=== PATIENT | male | born 1990 | race Caucasian/White ===

== ENCOUNTER 2016-10-31 23:45 | Emergency (ER) | payer SELFPAY ==
[~2016-10-31] VITALS: Ht 182.9 cm; Wt 95.0 kg
[~2016-10-31 23:45] MED LIST: NAPR500 PO; ROBA750T PO
[2016-10-31 23:46] VITALS: BP 142/97; PULSE 79; RESP 16; TEMP 98; O2SAT 97
[2016-11-01] MEDS ORDERED: ALBU6.7H INH (00:26)
[2016-11-01] MEDS ORDERED: ZITH250T PO (00:26)
[2016-11-01] MEDS ORDERED: PRED-503 PO (00:26)
[2016-11-01] MEDS ORDERED: predniSONE 20 MG TAB PO ONE (00:30)
--- NOTE | 2016-11-01 00:31 | PD ---
HPI Chief Complaint: Respiratory Symptoms Time Seen by Provider: 00:27 Travel History International Travel<30 days: No Contact w/Intl Traveler<30days: No Traveled to known affect area: No History of Present Illness HPI 26-year-old white male presents to emergency Department with complaints of cough and shortness of breath. He states it is been sick now for the past 3 or 4 days. He states that this initially started off with a sore throat, headache and congestion which has now settled down into his chest. He states that he has had some shortness of breath and wheezing. Positive cough with clear sputum. He had leave work today because of his shortness of breath. He states he had asthma as a child. He is a smoker. He denies any nausea vomiting. No abdominal pain or diarrhea. No urinary symptoms. Symptoms are moderate. Worse with coughing or activity. No alleviating factors. PFSH Past Medical History Narrative Medical Right hand fracture, asthma as a child Cancer: No Cardiovascular Problems: No Diminished Hearing: No Endocrine: No Genitourinary: No Immune Disorder: No Musculoskeletal: Yes (FX RT HAND ) Neurologic: No Psychiatric: No Reproductive: No Respiratory: Yes (CHILDHOOD ASTHMA) Past Surgical History Body Medical Devices: PLATE RIGHT HAND Pacemaker: No Social History Alcohol Use: Yes ("When I can...") Tobacco Use: Yes (1PPD) Substance Use: Yes (K2 MJ) Allergies-Medications (Allergen,Severity, Reaction): Coded Allergies: No Known Allergies (Verified , 11/01/16) Reported Meds & Prescriptions Reported Meds & Active Scripts Active Robaxin (Methocarbamol) 750 Mg Tab 750 Mg PO Q8HR PRN Naprosyn (Naproxen) 500 Mg Tab 500 Mg PO Q12HR PRN Review of Systems Except as stated in HPI: all other systems reviewed are Neg Physical Exam Narrative GENERAL: Well-developed, well-nourished in no acute distress. Nontoxic appearing. HEAD: Normocephalic, atraumatic. EYES: Pupils equal round and reactive. Extraocular motions intact. No scleral icterus. No injection or drainage. ENT: TMs clear without erythema. The external auditory canals clear. Nose: clear . Posterior pharynx is mildly erythematous and moist. White hairy tongue No tonsillar edema or exudate. Uvula midline. Airway patent. NECK: Trachea midline.Supple, nontender, moves head freely. No central bony tenderness or spasm. CARDIOVASCULAR: Regular rate and rhythm without murmurs, gallops, or rubs. RESPIRATORY: Scattered rhonchi with expiratory wheezes. No Rales. GASTROINTESTINAL: Abdomen soft, non-tender, nondistended. No hepato-splenomegaly , or palpable masses. No guarding. EXTREMITIES: No clubbing, cyanosis, or edema. No joint tenderness, effusion, or edema noted. BACK: Nontender without deformity or crepitance. No flank tenderness. Data Data Last Documented VS Vital Signs Date Time Temp Pulse Resp B/P Pulse Ox O2 Delivery O2 Flow Rate FiO2 10/31/16 23:46 98.0 79 16 142/97 97 Room Air Orders Prednisone (Deltasone) (11/01/16 00:30) Duoneb Q 15 Min X 2 Doses (11/01/16 00:30) [facility] Medical Decision Making Medical Screen Exam Complete: Yes Emergency Medical Condition: Yes Medical Record Reviewed: Yes Differential Diagnosis MDM: High Differential diagnoses: Pneumonia, bronchitis, URI, asthma, RAD, strep throat, otitis media Narrative Course Patient is given 80 mg of prednisone by mouth along with 2 DuoNeb. The patient subjectively feeling better. He has improved air movement. He has nearly complete resolution of his wheezing. This is bronchitis, reactive airway disease Diagnosis Primary Impression: Bronchitis Additional Impression: Reactive airway disease Qualified Code: J45.20 - Reactive airway disease, mild intermittent, uncomplicated Patient Instructions: General Instructions Additional Instructions: Rest. Increase fluids. Tylenol and Advil. Robitussin-DM. Zithromax, prednisone, and albuterol. Followup with your DrEdinson in one week. Return to the ER for any problems. Med/Other Pt SpecificInfo: Prescription(s) given Scripts Prednisone (Deltasone)20 Mg Tab40 Mg PO BID #20 TAB Prov:Rosanna Collins MD 11/01/16 Albuterol 6.7 GM Inh (Proventil Hfa 6.7 GM Inh)90 Mcg/Act Aer2 Puff INH Q6H PRN (SHORTNESS OF BREATH) #1 INHALER Prov:Rosanna Collins MD 11/01/16 Azithromycin (Zithromax)250 Mg [id number] Mg PO DIRECTED #6 TAB Take 2 tabs (500 mg) on day 1 then 1 tab daily x 4 days. Prov:Rosanna Collins MD 11/01/16 Disposition: 01 DISCHARGE HOME Condition: Stable Be Vela Nov 01, 2016 00:31
[2016-11-01] MEDS: RESP: ALBUTEROL 2.5 MG/IPRATROPIUM 0.5 MG NEB (SCH) INH (01:22)
== END 2016-11-01 01:59 | disposition home or self-care (01) ==
LOC: NEPK 23:45
DX: J45.20 Mild intermittent asthma, uncomplicated (principal); F17.210 Nicotine dependence, cigarettes, uncomplicated
CPT/HCPCS: 94640; 94664; 99284; J7512

== ENCOUNTER 2017-08-12 07:51 | Emergency (ER) | payer SELFPAY ==
[~2017-08-12] VITALS: Ht 182.9 cm; Wt 100.0 kg
[~2017-08-12 07:51] MED LIST changes: +ALBU6.7H INH; +PRED-503 PO; +ZITH250T PO
[2017-08-12 07:54] VITALS: BP 159/96; PULSE 55; RESP 17; TEMP 98.1; O2SAT 98
[2017-08-12] MEDS ORDERED: FLUT1SPR5 EACH NARE (08:37)
[2017-08-12] MEDS ORDERED: AMOX875T PO (08:37)
[2017-08-12] MEDS ORDERED: VENTAER INH (08:37)
[2017-08-12] MEDS ORDERED: IBUP1TAB7 PO (08:37)
[2017-08-12] MEDS ORDERED: IBUPROFEN 800 MG TAB PO ONE (08:45)
[2017-08-12] MEDS ORDERED: AMOXICILLIN 875 MG TAB PO ONE (08:45)
--- NOTE | 2017-08-12 08:45 | PD ---
HPI Chief Complaint: ENT Complaint Time Seen by Provider: 08:24 Travel History International Travel<30 days: No Contact w/Intl Traveler<30days: No Traveled to known affect area: No History of Present Illness HPI 26-year-old male presents emergency department with bilateral ear pain , right greater than left for the past 2 days. Patient has had increased upper respiratory symptoms including sinus congestion, headache, postnasal drip, cough , and mild wheeze. Patient is needed an inhaler in the past. He denies fever, chills, nausea, vomiting, or heartburn. He has no chest pain. Pain in his ears is 8 out of 10. He has decreased hearing secondary to congestion. He has no known drug allergies. PFSH Past Medical History Asthma: Yes Cancer: No Cardiovascular Problems: No Diminished Hearing: No Endocrine: No Genitourinary: No Immune Disorder: No Musculoskeletal: Yes (FX RT HAND ) Neurologic: No Psychiatric: No Reproductive: No Respiratory: Yes (CHILDHOOD ASTHMA) Tetanus Vaccination: < 5 Years Influenza Vaccination: No Past Surgical History Body Medical Devices: PLATE RIGHT HAND Pacemaker: No Other Surgery: Yes Social History Alcohol Use: Yes Tobacco Use: Yes (1PPD) Substance Use: Yes (H/O K2 MJ) Allergies-Medications (Allergen,Severity, Reaction): Coded Allergies: No Known Allergies (Verified Adverse Reaction, Unknown, 08/12/17) Reported Meds & Prescriptions Reported Meds & Active Scripts Active Ventolin Hfa 18 GM Inh (Albuterol Sulfate) 90 Mcg/Act Aer 2 Puff INH Q4-6H PRN Ibuprofen 800 Mg Tab 800 Mg PO Q8H PRN Flonase Nasal [place] (Fluticasone Nasal [place]) 50 Mcg/Act [place] 100 Mcg EACH NARE BID Amoxicillin 875 Mg Tab 875 Mg PO BID 10 Days Review of Systems Except as stated in HPI: all other systems reviewed are Neg General / Constitutional: No: Fever, Chills Eyes: No: Visual changes HENT: Positive: Headaches, Rhinitis, Rhinorrhea, Congestion, Earache, No: Vertigo, Lightheadedness, Sore Throat, Nosebleed, Neck Stiffness, Neck Pain, Gingival Bleeding, Dental Difficulties, Ear Discharge Cardiovascular: No: Chest Pain or Discomfort Respiratory: Positive: Cough, Wheezing, No: Shortness of Breath Gastrointestinal: No: Abdominal Pain Genitourinary: No: Dysuria Musculoskeletal: No: Pain Skin: No Rash Neurologic: No: Weakness Psychiatric: No: Depression Endocrine: No: Polydipsia Hematologic/Lymphatic: No: Easy Bruising Physical Exam Narrative GENERAL: Patient appears ill but not septic SKIN: Warm and dry. Normal color. Normal turgor. HEAD: Atraumatic. Normocephalic. No sinus tenderness to palpation EYES: Pupils equal and round. No scleral icterus. No injection or drainage. ENT: No nasal bleeding or discharge. Mucous membranes pink and moist. Both TMs are dull red and bulging bilaterally more on the left than the right. Patient has purulent rhinitis. Postnasal drip is noted in the posterior pharynx as well as erythema and cobblestoning. No significant tonsillitis is noted. Uvula is midline. Airways patent. NECK: Trachea midline. Supple and nontender without significant lymphadenopathy. CARDIOVASCULAR: Regular rate and rhythm. RESPIRATORY: No accessory muscle use. Diffuse wheezes to auscultation. Breath sounds equal bilaterally. GASTROINTESTINAL: Abdomen soft, non-tender, nondistended. Hepatic and splenic margins not palpable. MUSCULOSKELETAL: Extremities without clubbing, cyanosis, or edema. No obvious deformities. NEUROLOGICAL: Awake and alert. No obvious cranial nerve deficits. Motor grossly within normal limits. Five out of 5 muscle strength in the arms and legs. Normal speech. PSYCHIATRIC: Appropriate mood and affect; insight and judgment normal. Data Data Last Documented VS Vital Signs Date Time Temp Pulse Resp B/P (MAP) Pulse Ox O2 Delivery O2 Flow Rate FiO2 08/12/17 07:54 98.1 55 17 159/96 (117) 98 Orders Orders Amoxicillin (Trimox) (08/12/17 08:45) Ibuprofen (Motrin) (08/12/17 08:45) [facility] Medical Decision Making Medical Screen Exam Complete: Yes Emergency Medical Condition: Yes Differential Diagnosis Bilateral otitis media. Sinusitis. Wheezing Narrative Course Patient is treated with amoxicillin 875 twice daily for 10 days. Patient started on Flonase nasal spray 2 sprays each nostril daily. Patient is given albuterol metered-dose inhaler 2 puffs every 4-6 hours as needed wheezing. Work note for today is given. Follow-up if symptoms do not improve or worsen as needed Diagnosis Primary Impression: Bilateral otitis media with effusion Additional Impressions: Sinusitis, acute Qualified Codes: J01.40 - Acute pansinusitis, unspecified Wheezing Patient Instructions: Ear Infection (ED), General Instructions, Sinusitis (ED) Departure Forms: Work Release Enter return to work date: Aug 13, 2017 Additional Instructions: Patient is treated with amoxicillin 875 twice daily for 10 days. Patient started on Flonase nasal spray 2 sprays each nostril daily. Patient is given albuterol metered-dose inhaler 2 puffs every 4-6 hours as needed wheezing. Work note for today is given. Follow-up if symptoms do not improve or worsen as needed Med/Other Pt SpecificInfo: Prescription(s) given Scripts Albuterol 18 GM Inh (Ventolin Hfa 18 GM Inh) 90 Mcg/Act Aer 2 PUFF INH Q4-6H Y for SHORTNESS OF BREATH, #1 INHALER 0 Refills Prov: Anjel Decker MD 08/12/17 Ibuprofen (Ibuprofen) 800 Mg Tab 800 MG PO Q8H Y for Pain/Inflammation, #60 TAB 0 Refills Prov: Anjel Decker MD 08/12/17 Fluticasone Nasal [place] (Flonase Nasal [place]) 50 Mcg/Act [place] 100 MCG EACH NARE BID for Allergies, #1 BOTTLE 0 Refills Prov: Anjel Decker MD 08/12/17 Amoxicillin (Amoxicillin) 875 Mg Tab 875 MG PO BID for Infection for 10 Days, #20 TAB 0 Refills Prov: Anjel Decker MD 08/12/17 Disposition: 01 DISCHARGE HOME Condition: Stable Alberto Toribio Aug 12, 2017 08:45
== END 2017-08-12 08:55 | disposition home or self-care (01) ==
LOC: NEPD 07:51
DX: H65.93 Unspecified nonsuppurative otitis media, bilateral (principal); J01.40 Acute pansinusitis, unspecified; J45.909 Unspecified asthma, uncomplicated; R05 Cough; R51 Headache; F17.210 Nicotine dependence, cigarettes, uncomplicated; F12.90 Cannabis use, unspecified, uncomplicated
CPT/HCPCS: 99283

== ENCOUNTER 2017-09-14 13:59 | Emergency (ER) | payer SELFPAY ==
[~2017-09-14] VITALS: Ht 182.9 cm; Wt 100.0 kg
[~2017-09-14 13:59] MED LIST changes: -ALBU6.7H INH; +AMOX875T PO; +FLUT1SPR5 EACH NARE; +IBUP1TAB7 PO; -NAPR500 PO; -PRED-503 PO; -ROBA750T PO; +VENTAER INH; -ZITH250T PO
[2017-09-14 15:16] VITALS: BP 146/73; PULSE 58; RESP 17; TEMP 98.2; O2SAT 97
[2017-09-14 17:20] LABS: AUTOMATED NEUTROPHIL # 9.9 TH/MM3 (1.8-7.7); BASOPHIL % 0.1 % (0.0-2.0); EOSINOPHIL # 0.1 TH/MM3 (0-0.4); EOSINOPHIL % 0.7 % (0.0-4.0); HEMATOCRIT 44.9 % (39.0-51.0); HEMOGLOBIN 15.2 GM/DL (13.0-17.0); LYMPH % 6.5 % (9.0-44.0); LYMPHOCYTE # 0.7 TH/MM3 (1.0-4.8); MEAN CELL VOLUME 88.1 FL (80.0-100.0); MEAN CORPUSCULAR HEMOGLOBIN 29.8 PG (27.0-34.0); MEAN CORPUSCULAR HGB CONC 33.8 % (32.0-36.0); MEAN PLATELET VOLUME 8.9 FL (7.0-11.0); MONO % 3.4 % (0.0-8.0); MONOCYTE # 0.4 TH/MM3 (0-0.9); NEUT % 89.3 % (16.0-70.0); PLATELET COUNT 171 TH/MM3 (150-450); RED BLOOD COUNT 5.09 MIL/MM3 (4.50-5.90); RED CELL DISTRIBUTION WIDTH 12.2 % (11.6-17.2)
[2017-09-14] MEDS ORDERED: SODIUM CHLOR 0.9% 1000 ML INJ 1,000 ML IV ONE (17:45)
[2017-09-14] MEDS ORDERED: METOCLOPRAMIDE HCL 10 MG/2 ML VIAL IV PUSH ONE (17:45)
[2017-09-14 17:47] LABS: ALBUMIN 4.2 GM/DL (3.4-5.0); AST (GOT) 22 U/L (15-37); BICARBONATE 22.7 MEQ/L (21.0-32.0); BLOOD UREA NITROGEN 16 MG/DL (7-18); CALCIUM 9.2 MG/DL (8.5-10.1); CHLORIDE 105 MEQ/L (98-107); CREATININE 0.96 MG/DL (0.60-1.30); GLOMERULAR FILTRATION RATE 96 ML/MIN (>89); GLUCOSE,RANDOM 88 MG/DL (74-106); SODIUM (NA) 138 MEQ/L (136-145)
[2017-09-14 17:49] LABS: ALT (GPT) 39 U/L (12-78)
[2017-09-14 17:50] LABS: ALKALINE PHOSPHATASE 114 U/L (45-117); TOTAL BILIRUBIN ADULT 0.7 MG/DL (0.2-1.0); TOTAL PROTEIN 8.2 GM/DL (6.4-8.2)
[2017-09-14 18:27] VITALS: BP 135/65; PULSE 75; RESP 16; O2SAT 100
--- NOTE | 2017-09-14 18:29 | PD ---
HPI Chief Complaint: GI Complaint Time Seen by Provider: 17:28 Travel History International Travel<30 days: No Contact w/Intl Traveler<30days: No Traveled to known affect area: No History of Present Illness HPI 26-year-old male who presents to the ED for evaluation of abdominal pain, nausea vomiting diarrhea. Per patient this started since last night. Per patient his sister was sick with similar symptoms. 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 Per patient the diarrhea is watery. Per patient his vomitus no bloody. Patient cannot keep anything down until he took a Zofran from a friend's prescription that did not improve his symptoms. Patient still has a diarrhea. No blood in the stool. Denies any chest pain or shortness of breath. Most of the pain on the abdomen is 3 out of mostly in the lower abdomen. Especially in the right lower. Denies any other medical issues. Pain per patient is 6 out of 10. Cramping. PFSH Past Medical History Asthma: Yes Cancer: No Cardiovascular Problems: No Diminished Hearing: No Endocrine: No Genitourinary: No Immune Disorder: No Musculoskeletal: Yes (FX RT HAND ) Neurologic: No Psychiatric: No Reproductive: No Respiratory: Yes (CHILDHOOD ASTHMA) Immunizations Current: No Tetanus Vaccination: < 5 Years Influenza Vaccination: No Past Surgical History Body Medical Devices: PLATE RIGHT HAND Pacemaker: No Other Surgery: Yes Social History Alcohol Use: Yes Tobacco Use: Yes (1PPD) Substance Use: Yes (H/O K2 MJ) Allergies-Medications (Allergen,Severity, Reaction): Coded Allergies: No Known Allergies (Verified Adverse Reaction, Unknown, 09/14/17) Reported Meds & Prescriptions Reported Meds & Active Scripts Active Bentyl (Dicyclomine HCl) 10 Mg Cap 10 Mg PO TID PRN Zofran Odt (Ondansetron Odt) 4 Mg Tab 4 Mg SL Q6HR PRN Review of Systems Except as stated in HPI: all other systems reviewed are Neg Physical Exam Narrative GENERAL: SKIN: Warm and dry. HEAD: Atraumatic. Normocephalic. EYES: Pupils equal and round. No scleral icterus. No injection or drainage. ENT: No nasal bleeding or discharge. Mucous membranes pink and moist. Tongue is midline. No uvula deviation NECK: Trachea midline. No JVD. CARDIOVASCULAR: Regular rate and rhythm. No murmurs, S3, S4. RESPIRATORY: No accessory muscle use. Clear to auscultation. Breath sounds equal bilaterally. GASTROINTESTINAL: Abdomen soft, tender in the abdomen more noticeable on the right lower quadrant with deep palpation, nondistended. Hepatic and splenic margins not palpable. MUSCULOSKELETAL: Extremities without clubbing, cyanosis, or edema. No obvious deformities. Full range of motion of the upper and lower extremities bilaterally. 2+ pulses bilaterally. NEUROLOGICAL: Awake and alert. No obvious cranial nerve deficits. Motor grossly within normal limits. Five out of 5 muscle strength in the arms and legs. Normal speech. PSYCHIATRIC: Appropriate mood and affect; insight and judgment normal. Data Data Last Documented VS Vital Signs Date Time Temp Pulse Resp B/P (MAP) Pulse Ox O2 Delivery O2 Flow Rate FiO2 09/14/17 19:05 69 16 129/64 (85) 96 Room Air 09/14/17 15:16 98.2 Orders Orders Complete Blood Count With Diff (09/14/17 15:18) Comprehensive Metabolic Panel (09/14/17 15:18) Lipase (09/14/17 15:18) Ct Abd/Pel W Iv Contrast(Rout) (09/14/17 ) Metoclopramide Inj (Reglan Inj) (09/14/17 17:45) Sodium Chlor 0.9% 1000 Ml Inj (Ns 1000 M (09/14/17 17:45) Iohexol 350 Inj (Omnipaque 350 Inj) (09/14/17 19:35) Ed Discharge Order (09/14/17 19:55) Labs Laboratory Tests Test 09/14/17 15:30 White Blood Count 11.0 TH/MM3 Red Blood Count 5.09 MIL/MM3 Hemoglobin 15.2 GM/DL Hematocrit 44.9 % Mean Corpuscular Volume 88.1 FL Mean Corpuscular Hemoglobin 29.8 PG Mean Corpuscular Hemoglobin Concent 33.8 % Red Cell Distribution Width 12.2 % Platelet Count 171 TH/MM3 Mean Platelet Volume 8.9 FL Neutrophils (%) (Auto) 89.3 % Lymphocytes (%) (Auto) 6.5 % Monocytes (%) (Auto) 3.4 % Eosinophils (%) (Auto) 0.7 % Basophils (%) (Auto) 0.1 % Neutrophils # (Auto) 9.9 TH/MM3 Lymphocytes # (Auto) 0.7 TH/MM3 Monocytes # (Auto) 0.4 TH/MM3 Eosinophils # (Auto) 0.1 TH/MM3 Basophils # (Auto) 0.0 TH/MM3 CBC Comment DIFF FINAL Differential Comment Blood Urea Nitrogen 16 MG/DL Creatinine 0.96 MG/DL Random Glucose 88 MG/DL Total Protein 8.2 GM/DL Albumin 4.2 GM/DL Calcium Level 9.2 MG/DL Alkaline Phosphatase 114 U/L Aspartate Amino Transf (AST/SGOT) 22 U/L Alanine Aminotransferase (ALT/SGPT) 39 U/L Total Bilirubin 0.7 MG/DL Sodium Level 138 MEQ/L Potassium Level 3.7 MEQ/L Chloride Level 105 MEQ/L Carbon Dioxide Level 22.7 MEQ/L Anion Gap 10 MEQ/L Estimat Glomerular Filtration Rate 96 ML/MIN Lipase 71 U/L [facility] Medical Decision Making Medical Screen Exam Complete: Yes Emergency Medical Condition: Yes Medical Record Reviewed: Yes Interpretation(s) CBC & BMP Diagram 09/14/17 15:30 Total Protein 8.2, Albumin 4.2, Calcium Level 9.2, Alkaline Phosphatase 114, Aspartate Amino Transf (AST/SGOT) 22, Alanine Aminotransferase (ALT/SGPT) 39, Total Bilirubin 0.7 lipase WNL Last Impressions Abdomen/Pelvis CT 09/14/17 0000 Signed Impressions: CONCLUSION: 1. Negative CT abdomen/pelvis with contrast. Differential Diagnosis Acute abdomen versus appendicitis versus gastroenteritis versus nausea vomiting diarrhea versus gastritis Narrative Course 26-year-old male that presents to the ED for evaluation of abdominal pain and possible GI bug.. Patient was properly examined and was found to have signs and symptoms which appear to be more consistent with gastroenteritis. Patient does have significant discomfort in the right lower quadrant. Definitely some concern for appendicitis of the likely less likely. Labs and imaging were ordered. Patient was given IV fluids and medications. Labs and imaging showed no sign of acute disease. Patient was reassured. No sign of appendicitis at this time. Patient's physical exam is reassuring at this time. Patient will be treated with Zofran and Bentyl. Given prescriptions for this. Told to follow-up closely with PCP. See ED if worsening symptoms. Given note for work. Drink plenty of fluids Diagnosis Primary Impression: Gastroenteritis Patient Instructions: General Instructions Departure Forms: Tests/Procedures, Work Release Enter return to work date: September 16, 2017 Additional Instructions: Drink plenty of fluids. Take medications as prescribed. Follow with PCP. See ED if worsening symptoms. Avoid any heavy foods like fast food, milk, alcohol until 100% back to normal. Med/Other Pt SpecificInfo: Prescription(s) given Scripts Dicyclomine (Bentyl) 10 Mg Cap 10 MG PO TID Y for Bowel Management, #10 CAP 0 Refills Prov: Clayton Lyles MD 09/14/17 Ondansetron Odt (Zofran Odt) 4 Mg Tab 4 MG SL Q6HR Y for Nausea/Vomiting, #15 TAB 0 Refills Prov: Clayton Lyles MD 09/14/17 Disposition: 01 DISCHARGE HOME Condition: Stable Narciso Redding September 14, 2017 18:29
[2017-09-14 19:05] VITALS: BP 129/64; PULSE 69; RESP 16; O2SAT 96
[2017-09-14] MEDS ORDERED: IOHEXOL 350 MG/ML 10 ML VIAL (for RAD DIAG) IVCONTRAST ONE (19:35)
--- NOTE | 2017-09-14 19:48 | RADRPT ---
EXAM DATE: 09/14/2017 7:35 PM EDT AGE/SEX: 26 years / Male INDICATIONS: Abdominal pain, nausea, vomiting, diarrhea. CLINICAL DATA: This is the patient's initial encounter. Patient reports that signs and symptoms have been present for 2 days and indicates a pain score of 6/10. MEDICAL/SURGICAL HISTORY: None. None. ORAL CONTRAST: No oral contrast ingested. RADIATION DOSE: 13.17 CTDI (mGy) COMPARISON: No prior [facility] exams available for comparison. TECHNIQUE: Multiple contiguous axial images were obtained through the abdomen and pelvis following b olus infusion of 95 ml Omnipaque 350 (iohexol) nonionic water-soluble contrast as a single exam dos e. No oral contrast ingested. Using automated exposure control and adjustment of the mA and/or kV ac cording to patient size, the radiation dose was kept as low as reasonably achievable to obtain optima l diagnostic quality images. FINDINGS: Lower Lungs: The visualized lower lungs are clear. Liver: The liver has a homogeneous density without space-occupying lesion. There is no dilation of th e biliary tree. No calcified gallstones. Spleen: Homogeneous density without enlargement. Pancreas: Unremarkable without mass or calcification. Kidneys: Normal in size and shape. No evidence of mass or hydronephrosis. Adrenal Glands: Unremarkable. Aorta: The aorta and proximal iliac vessels are grossly unremarkable without aneurysmal dilation. Bowel/Mesentery: No dilated loops of small or large bowel. The appendix is identified in the right l ower quadrant, extends medially, and has a normal size. No evidence of free fluid. Abdominal Wall: Intact. Retroperitoneum: No evidence of adenopathy in the retrocrural, para-aortic, or deep pelvic regions. Bladder: Contours are smooth. Reproductive Organs: No abnormal masses or calcifications seen. Inguinal: The inguinal region is unremarkable without evidence of enlarged nodes. Bony Structures: Unremarkable. CONCLUSION: 1. Negative CT abdomen/pelvis with contrast. Electronically signed by: Delbert Vila MD 09/14/2017 7:47 PM EDT
[2017-09-14] MEDS ORDERED: DICY10 PO (19:55)
[2017-09-14] MEDS ORDERED: ZOFR4TAB3 SL (19:55)
== END 2017-09-14 21:14 | disposition home or self-care (01) ==
LOC: NEPC 13:59
DX: K52.9 Noninfective gastroenteritis and colitis, unspecified (principal); F17.200 Nicotine dependence, unspecified, uncomplicated
CPT/HCPCS: 74177; 80053; 83690; 85025; 96374; 99284; J2765; J7030; Q9967